=== PATIENT | female | born 1990 | race Caucasian/White ===

== ENCOUNTER 2016-12-27 12:09 | Emergency (ER) | payer MEDICAID ==
[~2016-12-27] VITALS: Ht 154.9 cm; Wt 50.0 kg
[2016-12-27 12:11] VITALS: BP 107/68; PULSE 98; RESP 20; TEMP 97.9; O2SAT 100
[2016-12-27] MEDS ORDERED: SODIUM CHLORIDE 0.9% FLUSH 10 ML FLUSH IVF PRN (12:45)
[2016-12-27] MEDS ORDERED: ONDANSETRON HCL 4 MG/2 ML VIAL IVP ONE (12:45)
[2016-12-27] MEDS ORDERED: SODIUM CHLOR 0.9% 1000 ML INJ 1,000 ML IV ONE (12:45)
--- NOTE | 2016-12-27 12:49 | PD ---
HPI Chief Complaint: Complaint Time Seen by Provider: 12:40 Travel History International Travel<30 days: No Contact w/Intl Traveler<30days: No Traveled to known affect area: No History of Present Illness HPI Patient is a 26-year-old female presenting to emergency evaluation of urinary symptoms. Patient states she started with burning a week ago, she took Azo and her symptoms went away until 2-3 days ago. She states then she started having burning, frequency, left lower back and flank pain. She also reports nausea and vomiting, feeling dizzy, chills and subjective fevers. She denies any vaginal bleeding or discharge. Patient reports her pain as aching and a 5 out of 10, there are no alleviating or exacerbating factors. PFSH Past Medical History ADHD: No Anemia: Yes Arthritis: No Asthma: No Bipolar Disorder: Yes Anxiety: Yes Depression: Yes Cancer: No High Cholesterol: No Chest Pain: No Congestive Heart Failure: No COPD: No Cerebrovascular Accident: No Diabetes: No Diminished Hearing: No Endocrine: No Gastrointestinal Disorders: No GERD: No Genitourinary: No Headaches: Yes Hepatitis: No Hiatal Hernia: No Hypertension: No Immune Disorder: No Implanted Vascular Access Dvce: No Kidney Stones: No Musculoskeletal: No Neurologic: No Psychiatric: Yes (PTSD) Respiratory: No Immunizations Current: No Migraines: Yes Myocardial Infarction: No Renal Failure: No Seizures: Yes (patient has had one seizure) Sleep Apnea: No Thyroid Disease: No Ulcer: Yes (GASTRIC ULCERS) Tetanus Vaccination: < 5 Years ?: Not LMP: DECEMBER 2016 Menopausal: No : 4 Para: 1 Miscarriage: 3 : 0 Ovarian Cysts: Yes Dilation and Curettage (D&C): Yes (july 2014) Past Surgical History Abdominal Surgery: No Appendectomy: No Cardiac Surgery: No Cholecystectomy: No Ear Surgery: No Endocrine Surgery: No Eye Surgery: No Genitourinary Surgery: No Gynecologic Surgery: Yes (D&C) Neurologic Surgery: No Oral Surgery: No Thoracic Surgery: No Social History Alcohol Use: No Tobacco Use: Yes Substance Use: No Allergies-Medications (Allergen,Severity, Reaction): Coded Allergies: Albuterol (Verified Allergy, Severe, Nausea/Vomiting, 12/27/16) Doxycycline (Verified Allergy, Severe, N/V/D, 12/27/16) Naproxen (Verified Allergy, Severe, ITCHY/VOMITING/RASH, 12/27/16) Ibuprofen (Verified Allergy, Unknown, Itchy, nausea, vomiting, diarrhea, ) Reported Meds & Prescriptions Reported Meds & Active Scripts Active No Active Prescriptions or Reported Medications Review of Systems Except as stated in HPI: all other systems reviewed are Neg General / Constitutional: Positive: Fever (subjective), Chills Respiratory: No: Shortness of Breath Gastrointestinal: Positive: Nausea, Vomiting Genitourinary: Positive: Urgency, Frequency, Dysuria, Pelvic Pain, Flank Pain, No: Discharge, Vaginal Bleeding Musculoskeletal: No: Myalgias Physical Exam Narrative GENERAL: Well-developed, well-nourished, alert female. Resting comfortably in no acute distress. SKIN: Warm and dry. HEAD: Atraumatic. Normocephalic. EYES: Pupils equal and round. No scleral icterus. No injection or drainage. ENT: No nasal bleeding or discharge. Mucous membranes pink and moist. NECK: Trachea midline. No JVD. CARDIOVASCULAR: Regular rate and rhythm. RESPIRATORY: No accessory muscle use. Clear to auscultation. Breath sounds equal bilaterally. GASTROINTESTINAL: Abdomen soft, mildly tender to palpation in suprapubic region , nondistended. Hepatic and splenic margins not palpable. Positive CVAT on the left MUSCULOSKELETAL: Extremities without clubbing, cyanosis, or edema. No obvious deformities. NEUROLOGICAL: Awake and alert. No obvious cranial nerve deficits. Motor grossly within normal limits. Five out of 5 muscle strength in the arms and legs. Normal speech. PSYCHIATRIC: Appropriate mood and affect; insight and judgment normal. Data Data Last Documented VS Vital Signs Date Time Temp Pulse Resp B/P Pulse Ox O2 Delivery O2 Flow Rate FiO2 12/27/16 12:11 97.9 98 20 107/68 100 Orders Urinalysis - C+S If Indicated (12/27/16 12:30) Iv Access Insert/Monitor (12/27/16 12:37) Sodium Chloride 0.9% Flush (Ns Flush) (12/27/16 12:45) Ondansetron Inj (Zofran Inj) (12/27/16 12:45) Sodium Chlor 0.9% 1000 Ml Inj (Ns 1000 M (12/27/16 12:45) Complete Blood Count With Diff (12/27/16 12:37) Basic Metabolic Panel (Bmp) (12/27/16 12:37) Urine Culture (12/27/16 12:45) Ciprofloxacin (Cipro) (12/27/16 14:00) Labs Laboratory Tests Test 12/27/16 12:45 White Blood Count 13.9 TH/MM3 Red Blood Count 4.94 MIL/MM3 Hemoglobin 15.4 GM/DL Hematocrit 45.0 % Mean Corpuscular Volume 91.0 FL Mean Corpuscular Hemoglobin 31.3 PG Mean Corpuscular Hemoglobin 34.3 % Concent Red Cell Distribution Width 14.8 % Platelet Count 356 TH/MM3 Mean Platelet Volume 9.1 FL Neutrophils (%) (Auto) 74.8 % Lymphocytes (%) (Auto) 18.8 % Monocytes (%) (Auto) 5.8 % Eosinophils (%) (Auto) 0.4 % Basophils (%) (Auto) 0.2 % Neutrophils # (Auto) 10.3 TH/MM3 Lymphocytes # (Auto) 2.6 TH/MM3 Monocytes # (Auto) 0.8 TH/MM3 Eosinophils # (Auto) 0.1 TH/MM3 Basophils # (Auto) 0.0 TH/MM3 CBC Comment DIFF FINAL Differential Comment Urine Color DARK-YELLOW Urine Turbidity HAZY Urine pH 8.5 Urine Specific [facility] 1.020 Urine Protein 100 mg/dL Urine Glucose (UA) NEG mg/dL Urine Ketones NEG mg/dL Urine Occult Blood TRACE Urine Nitrite NEG Urine Bilirubin NEG Urine Urobilinogen LESS THAN 2.0 MG/DL Urine Leukocyte Esterase LARGE Urine RBC 18 /hpf Urine WBC 161 /hpf Urine Squamous Epithelial 1 /hpf Cells Urine Bacteria OCC /hpf Urine Mucus FEW /lpf Microscopic Urinalysis Comment CULTURE INDICATED Sodium Level 136 MEQ/L Potassium Level 3.6 MEQ/L Chloride Level 104 MEQ/L Carbon Dioxide Level 25.8 MEQ/L Anion Gap 6 MEQ/L Blood Urea Nitrogen 10 MG/DL Creatinine 0.62 MG/DL Estimat Glomerular Filtration 117 ML/MIN Rate Random Glucose 82 MG/DL Calcium Level 9.1 MG/DL [facility] Medical Decision Making Medical Screen Exam Complete: Yes Emergency Medical Condition: Yes Interpretation(s) Laboratory Tests Test 12/27/16 12:45 White Blood Count 13.9 TH/MM3 Red Blood Count 4.94 MIL/MM3 Hemoglobin 15.4 GM/DL Hematocrit 45.0 % Mean Corpuscular Volume 91.0 FL Mean Corpuscular Hemoglobin 31.3 PG Mean Corpuscular Hemoglobin 34.3 % Concent Red Cell Distribution Width 14.8 % Platelet Count 356 TH/MM3 Mean Platelet Volume 9.1 FL Neutrophils (%) (Auto) 74.8 % Lymphocytes (%) (Auto) 18.8 % Monocytes (%) (Auto) 5.8 % Eosinophils (%) (Auto) 0.4 % Basophils (%) (Auto) 0.2 % Neutrophils # (Auto) 10.3 TH/MM3 Lymphocytes # (Auto) 2.6 TH/MM3 Monocytes # (Auto) 0.8 TH/MM3 Eosinophils # (Auto) 0.1 TH/MM3 Basophils # (Auto) 0.0 TH/MM3 CBC Comment DIFF FINAL Differential Comment Urine Color DARK-YELLOW Urine Turbidity HAZY Urine pH 8.5 Urine Specific [facility] 1.020 Urine Protein 100 mg/dL Urine Glucose (UA) NEG mg/dL Urine Ketones NEG mg/dL Urine Occult Blood TRACE Urine Nitrite NEG Urine Bilirubin NEG Urine Urobilinogen LESS THAN 2.0 MG/DL Urine Leukocyte Esterase LARGE Urine RBC 18 /hpf Urine WBC 161 /hpf Urine Squamous Epithelial 1 /hpf Cells Urine Bacteria OCC /hpf Urine Mucus FEW /lpf Microscopic Urinalysis Comment CULTURE INDICATED Sodium Level 136 MEQ/L Potassium Level 3.6 MEQ/L Chloride Level 104 MEQ/L Carbon Dioxide Level 25.8 MEQ/L Anion Gap 6 MEQ/L Blood Urea Nitrogen 10 MG/DL Creatinine 0.62 MG/DL Estimat Glomerular Filtration 117 ML/MIN Rate Random Glucose 82 MG/DL Calcium Level 9.1 MG/DL Vital Signs Date Time Temp Pulse Resp B/P Pulse Ox O2 Delivery O2 Flow Rate FiO2 12/27/16 12:11 97.9 98 20 107/68 100 Differential Diagnosis Pyelonephritis versus urinary tract infection versus kidney stone versus other Narrative Course Patient is a 26-year-old female presenting to emergency department for evaluation of 1 week of urinary symptoms. Patient's vital signs are stable, labs ordered and pending. CBC with a white count of 13.9 Chemistry is unremarkable Urinalysis with CBC 161, RBC 18, large leukocyte esterase, trace occult blood, reflex culture pending. Patient given 1 dose of ciprofloxacin orally in the emergency department. She was also given 1 L of IV fluids as well as Zofran for nausea. Patient will be discharged home. She is encouraged to maintain adequate fluid intake, she was advised to return to emergency department for any new or worsening symptoms. She was encouraged to follow-up with her primary doctor. Patient verbalized understanding of instructions. Patient stable for discharge. Diagnosis Primary Impression: Urinary tract infection Qualified Code: N39.0 - Urinary tract infection with hematuria, site unspecified Referrals: Primary Care Physician Patient Instructions: General Instructions, Urinary Tract Infection in Women ( ED) Additional Instructions: Complete full course of antibiotics as prescribed Return to emergency department for any new or worsening symptoms Increase fluid intake Follow-up with your primary doctor Med/Other Pt SpecificInfo: Prescription(s) given Scripts Ondansetron Odt (Zofran Odt)4 Mg Tab4 Mg SL Q6HR PRN (Nausea/Vomiting) #30 TAB Ref 0 Prov:Quita Andrade 12/27/16 Ciprofloxacin (Cipro)500 Mg [id number] Mg PO BID 7 Days Ref 0 Prov:Quita Andrade 12/27/16 Disposition: 01 DISCHARGE HOME Condition: Stable Quita Andrade Dec 27, 2016 12:49
[2016-12-27 13:38] LABS: AUTOMATED NEUTROPHIL # 10.3 TH/MM3 (1.8-7.7); BASOPHIL % 0.2 % (0.0-2.0); EOSINOPHIL # 0.1 TH/MM3 (0-0.4); EOSINOPHIL % 0.4 % (0.0-4.0); HEMO FLAGS DIFF FINAL; LYMPH % 18.8 % (9.0-44.0); LYMPHOCYTE # 2.6 TH/MM3 (1.0-4.8); MEAN CORPUSCULAR HEMOGLOBIN 31.3 PG (27.0-34.0); MEAN CORPUSCULAR HGB CONC 34.3 % (32.0-36.0); MONO % 5.8 % (0.0-8.0); NEUT % 74.8 % (16.0-70.0); PLATELET COUNT 356 TH/MM3 (150-450); RED BLOOD COUNT 4.94 MIL/MM3 (4.00-5.30); RED CELL DISTRIBUTION WIDTH 14.8 % (11.6-17.2); WHITE BLOOD COUNT 13.9 TH/MM3 (4.0-11.0)
[2016-12-27 13:45] LABS: BACTERIA, URINE OCC /hpf; BLOOD, URINE TRACE (NEG); COMMENT (UR) CULTURE INDICATED; CULTURE IF INDICATED CULTURE INDICATED; GLUCOSE,URINE NEG (NEG); KETONE, URINE NEG (NEG); MUCUS URINE FEW /lpf (OCC); NITRITE,URINE NEG (NEG); PH, URINE 8.5 (5.0-8.5); SQUAMOUS EPITHELIAL CELL URINE 1 /hpf (0-5); URINE COLOR DARK-YELLOW (YELLW/STRAW)
[2016-12-27] MEDS ORDERED: CIPROFLOXACIN 500 MG TAB PO ONE (14:00)
[2016-12-27 14:04] LABS: BICARBONATE 25.8 MEQ/L (21.0-32.0); POTASSIUM 3.6 MEQ/L (3.5-5.1)
[2016-12-27] MEDS ORDERED: CIPR-9 PO (14:21)
[2016-12-27] MEDS ORDERED: ZOFR4TAB3 SL (14:21)
[2016-12-27 14:28] VITALS: BP 118/68
== END 2016-12-27 14:29 | disposition home or self-care (01) ==
LOC: NEPD 12:09
DX: N39.0 Urinary tract infection, site not specified (principal); B96.20 Unspecified Escherichia coli [E. coli] as the cause of diseases classified elsewhere; R31.9 Hematuria, unspecified
CPT/HCPCS: 80048; 81001; 85025; 87077; 87086; 87186; 96374; 99284; J2405; J7030

== ENCOUNTER 2017-01-27 11:57 | Emergency (ER) | payer MEDICAID ==
[~2017-01-27] VITALS: Ht 154.9 cm; Wt 47.5 kg
[~2017-01-27 11:57] MED LIST: CIPR-9 PO; ZOFR4TAB3 SL
[2017-01-27 11:59] VITALS: BP 111/77; PULSE 103; RESP 20; TEMP 97.7; O2SAT 96
--- NOTE | 2017-01-27 12:08 | PD ---
Physical Exam Time Seen by Provider: 12:05 Narrative 26yo F c/o R sided abdominal pain, vomiting, and diarrhea since this morning. Pain 9/10. +hx kidney infection. Denies dysuria. Denies hx kidney stones. Denies hx appendectomy. Afebrile in triage. Patient seen in triage. VS reviewed. Awaiting bed placement. Data Data Last Documented VS Vital Signs Date Time Temp Pulse Resp B/P Pulse Ox O2 Delivery O2 Flow Rate FiO2 01/27/17 11:59 97.7 103 20 111/77 96 Room Air MDM Supervised Visit with KAZ: Farrah Osborne Jan 27, 2017 12:08
[2017-01-27] MEDS ORDERED: ONDANSETRON HCL 4 MG/2 ML VIAL IVP ONE (13:00)
[2017-01-27] MEDS ORDERED: SODIUM CHLORIDE 0.9% FLUSH 10 ML FLUSH IV FLUSH PRN (13:00)
[2017-01-27] MEDS ORDERED: MORPHINE SULFATE 4 MG/ML INJ IV PUSH ONE (13:00)
--- NOTE | 2017-01-27 13:10 | PD ---
HPI Chief Complaint: Abdominal Pain Time Seen by Provider: 12:43 Travel History International Travel<30 days: No Contact w/Intl Traveler<30days: No Traveled to known affect area: No History of Present Illness HPI The patient was seen and examined in the presence of the nurse. This patient complains of abdominal pain. Location is right lower quadrant. Duration is 5 hours. Symptoms are moderate to severe in nature. She has nausea and vomiting as well denies vaginal discharge or vaginal bleeding or fever. She does not think she is . No alleviating factors. No history of abdominal surgeries PFSH Past Medical History ADHD: No Anemia: Yes Arthritis: No Asthma: No Bipolar Disorder: Yes Anxiety: Yes Depression: Yes Cancer: No High Cholesterol: No Chest Pain: No Congestive Heart Failure: No COPD: No Cerebrovascular Accident: No Diabetes: No Diminished Hearing: No Endocrine: No Gastrointestinal Disorders: No GERD: No Genitourinary: No Headaches: Yes Hepatitis: No Hiatal Hernia: No Hypertension: No Immune Disorder: No Implanted Vascular Access Dvce: No Kidney Stones: No Musculoskeletal: No Neurologic: No Psychiatric: Yes (PTSD) Respiratory: No Immunizations Current: No Migraines: Yes Myocardial Infarction: No Renal Failure: No Seizures: Yes (patient has had one seizure) Sleep Apnea: No Thyroid Disease: No Ulcer: Yes (GASTRIC ULCERS) ?: Not LMP: 1 week ago Menopausal: No : 4 Para: 1 Miscarriage: 3 : 0 Ovarian Cysts: Yes Dilation and Curettage (D&C): Yes (july 2014) Past Surgical History Abdominal Surgery: No Appendectomy: No Cardiac Surgery: No Cholecystectomy: No Ear Surgery: No Endocrine Surgery: No Eye Surgery: No Genitourinary Surgery: No Gynecologic Surgery: Yes (D&C) Neurologic Surgery: No Oral Surgery: No Thoracic Surgery: No Social History Alcohol Use: No Tobacco Use: Yes Substance Use: No Allergies-Medications (Allergen,Severity, Reaction): Coded Allergies: Albuterol (Verified Allergy, Severe, Nausea/Vomiting, 12/27/16) Doxycycline (Verified Allergy, Severe, N/V/D, 12/27/16) Naproxen (Verified Allergy, Severe, ITCHY/VOMITING/RASH, 12/27/16) Ibuprofen (Verified Allergy, Unknown, Itchy, nausea, vomiting, diarrhea, ) Reported Meds & Prescriptions Reported Meds & Active Scripts Active Zofran Odt (Ondansetron Odt) 4 Mg Tab 4 Mg SL Q6HR PRN Cipro (Ciprofloxacin HCl) 500 Mg Tab 500 Mg PO BID 7 Days Review of Systems General / Constitutional: No: Fever Eyes: No: Visual changes HENT: No: Headaches Cardiovascular: No: Chest Pain or Discomfort Respiratory: No: Shortness of Breath Gastrointestinal: Positive: Nausea, Vomiting, Abdominal Pain Genitourinary: Positive: Pelvic Pain, No: Dysuria Musculoskeletal: No: Pain Skin: No Rash Neurologic: No: Weakness Psychiatric: No: Depression Endocrine: No: Polydipsia Hematologic/Lymphatic: No: Easy Bruising Physical Exam Narrative GENERAL: Well-nourished, well-developed patient with right lower quadrant pain. SKIN: Focused skin assessment reveals no rash and nodules. Skin is Warm and dry. HEAD: Atraumatic. Normocephalic. EYES: Pupils equal and round. No scleral icterus. No injection or drainage. ENT: No nasal bleeding or discharge. Mucous membranes pink and moist. NECK: Trachea midline. No JVD. CARDIOVASCULAR: Regular rate and rhythm. No murmur appreciated. RESPIRATORY: No accessory muscle use. Clear to auscultation. Breath sounds equal bilaterally. GASTROINTESTINAL: Abdomen soft, right lower quadrant is tender without rebound or guarding, nondistended. Hepatic and splenic margins not palpable. MUSCULOSKELETAL: No obvious deformities. No clubbing. No cyanosis. No edema. NEUROLOGICAL: Awake and alert. No obvious cranial nerve deficits. Motor grossly within normal limits. Normal speech. PSYCHIATRIC: Appropriate mood and affect; insight and judgment normal. Pelvic: Speculum exam reveals no blood or discharge in the vault. No cervical motion tenderness. No adnexal mass Data Data Last Documented VS Vital Signs Date Time Temp Pulse Resp B/P Pulse Ox O2 Delivery O2 Flow Rate FiO2 01/27/17 13:20 18 01/27/17 11:59 97.7 103 111/77 96 Room Air Orders Basic Metabolic Panel (Bmp) (01/27/17 12:59) Complete Blood Count With Diff (01/27/17 12:59) Prothrombin Time / Inr (Pt) (01/27/17 12:59) Act Partial Throm Time (Ptt) (01/27/17 12:59) Urinalysis - C+S If Indicated (01/27/17 12:59) Ct Abd/Pel W Iv Contrast(Rout) (01/27/17 12:59) Iv Access Insert/Monitor (01/27/17 12:59) Morphine Inj (Morphine Inj) (01/27/17 13:00) Ondansetron Inj (Zofran Inj) (01/27/17 13:00) Sodium Chloride 0.9% Flush (Ns Flush) (01/27/17 13:00) Ed Urine Pregnancytest Poc (01/27/17 12:59) Diatrizoate Liq ( Gastroview Liq) (01/27/17 13:18) Oral Contrast - Adult (01/27/17 13:21) Urine Culture (01/27/17 13:08) Iohexol 350 Inj (Omnipaque 350 Inj) (01/27/17 15:32) Labs Laboratory Tests Test 01/27/17 13:08 White Blood Count 12.4 TH/MM3 Red Blood Count 4.78 MIL/MM3 Hemoglobin 15.1 GM/DL Hematocrit 43.8 % Mean Corpuscular Volume 91.6 FL Mean Corpuscular Hemoglobin 31.5 PG Mean Corpuscular Hemoglobin 34.4 % Concent Red Cell Distribution Width 14.2 % Platelet Count 314 TH/MM3 Mean Platelet Volume 8.8 FL Neutrophils (%) (Auto) 66.4 % Lymphocytes (%) (Auto) 24.1 % Monocytes (%) (Auto) 7.7 % Eosinophils (%) (Auto) 1.1 % Basophils (%) (Auto) 0.7 % Neutrophils # (Auto) 8.3 TH/MM3 Lymphocytes # (Auto) 3.0 TH/MM3 Monocytes # (Auto) 1.0 TH/MM3 Eosinophils # (Auto) 0.1 TH/MM3 Basophils # (Auto) 0.1 TH/MM3 CBC Comment DIFF FINAL Differential Comment Prothrombin Time 11.4 SEC Prothromb Time International 1.0 RATIO Ratio Activated Partial 26.9 SEC Thromboplast Time Urine Color DARK-BROWN Urine Turbidity CLEAR Urine pH 6.5 Urine Specific [place] 1.018 Urine Protein 30 mg/dL Urine Glucose (UA) NEG mg/dL Urine Ketones NEG mg/dL Urine Occult Blood NEG Urine Nitrite POS Urine Bilirubin NEG Urine Urobilinogen 8.0 MG/DL Urine Leukocyte Esterase NEG Urine WBC 2 /hpf Urine Squamous Epithelial 1 /hpf Cells Urine Bacteria FEW /hpf Urine Mucus FEW /lpf Microscopic Urinalysis Comment CULTURE INDICATED Sodium Level 139 MEQ/L Potassium Level 3.5 MEQ/L Chloride Level 107 MEQ/L Carbon Dioxide Level 22.0 MEQ/L Anion Gap 10 MEQ/L Blood Urea Nitrogen 7 MG/DL Creatinine 0.76 MG/DL Estimat Glomerular Filtration 93 ML/MIN Rate Random Glucose 88 MG/DL Calcium Level 8.8 MG/DL MDM Medical Decision Making Medical Screen Exam Complete: Yes Emergency Medical Condition: Yes Medical Record Reviewed: Yes Differential Diagnosis Appendicitis, colitis, PID, ectopic Narrative Course I have reviewed the patient's electronic medical record. Patient's been here before for childbirth and was [place] acted years ago IV placed CBC is normal Metabolic profile is normal Urinalysis is clean but will be cultured due to nitrate. Certainly not the cause of her symptoms Urine is negative Coagulation studies are normal CT of abdomen and pelvis with oral and IV contrast done to evaluate for appendicitis. CT scan is negative for any emergent process. Appendix is normal Etiology of her right lower quadrant pain is unclear but I cannot find any evidence of emergent condition. Reviewed it with her in detail and answered her questions I offered her medication but she does not want any prescriptions Diagnosis Primary Impression: Right lower quadrant abdominal pain of unknown etiology Additional Instructions: The patient was advised to follow up with their physician and return if they worsen. Med/Other Pt SpecificInfo: Other Disposition: 01 DISCHARGE HOME Condition: Stable Michael Narayanan MD Jan 27, 2017 13:10
[2017-01-27] MEDS ORDERED: DIATRIZOATE MEGLUM/DIATRIZOATE SOD 9 ML CUP ONE (13:18)
[2017-01-27 13:36] LABS: AUTOMATED NEUTROPHIL # 8.3 TH/MM3 (1.8-7.7); BASOPHIL # 0.1 TH/MM3 (0-0.2); BASOPHIL % 0.7 % (0.0-2.0); EOSINOPHIL # 0.1 TH/MM3 (0-0.4); EOSINOPHIL % 1.1 % (0.0-4.0); HEMATOCRIT 43.8 % (35.0-46.0); HEMO FLAGS DIFF FINAL; LYMPH % 24.1 % (9.0-44.0); MEAN CELL VOLUME 91.6 FL (80.0-100.0); MEAN CORPUSCULAR HEMOGLOBIN 31.5 PG (27.0-34.0); MEAN CORPUSCULAR HGB CONC 34.4 % (32.0-36.0); MONO % 7.7 % (0.0-8.0); NEUT % 66.4 % (16.0-70.0); PLATELET COUNT 314 TH/MM3 (150-450); RED BLOOD COUNT 4.78 MIL/MM3 (4.00-5.30); RED CELL DISTRIBUTION WIDTH 14.2 % (11.6-17.2); WHITE BLOOD COUNT 12.4 TH/MM3 (4.0-11.0)
[2017-01-27 13:45] LABS: APTT (PATIENT) 26.9 SEC (24.3-30.1); PROTHROMBIN TIME - PATIENT 11.4 SEC (9.8-11.6)
[2017-01-27 13:53] LABS: POTASSIUM 3.5 MEQ/L (3.5-5.1)
[2017-01-27 13:55] LABS: BACTERIA, URINE FEW /hpf; BLOOD, URINE NEG (NEG); COMMENT (UR) CULTURE INDICATED; CULTURE IF INDICATED CULTURE INDICATED; GLUCOSE,URINE NEG (NEG); KETONE, URINE NEG (NEG); MUCUS URINE FEW /lpf (OCC); PH, URINE 6.5 (5.0-8.5); SQUAMOUS EPITHELIAL CELL URINE 1 /hpf (0-5)
[2017-01-27 13:59] LABS: NITRITE,URINE POS (NEG); URINE COLOR DARK-BROWN (YELLW/STRAW)
[2017-01-27] MEDS ORDERED: IOHEXOL 350 MG/ML 10 ML VIAL (for RAD DIAG) IV ONE (15:32)
--- NOTE | 2017-01-27 15:48 | RADRPT ---
EXAM DATE/TIME: 01/27/2017 15:21 [place] COMPARISON: CT ABDOMEN & PELVIS W CONTRAST, December 19, 2011, 20:03. INDICATIONS : Patient complains of abdominal pain and vomiting. IV CONTRAST: 100 cc Omnipaque 350 (iohexol) IV ORAL CONTRAST: Partial prescribed oral contrast ingested. RADIATION DOSE: 4.49 CTDIvol (mGy) MEDICAL HISTORY : Ulcers. SURGICAL HISTORY : Tubal ligation. ENCOUNTER: Initial ACUITY: 1 day PAIN SCALE: 6/10 LOCATION: Right lower quadrant TECHNIQUE: Volumetric scanning of the abdomen and pelvis was performed. Using automated exposure control and ad justment of the mA and/or kV according to patient size, radiation dose was kept as low as reasonably achievable to obtain optimal diagnostic quality images. DICOM format image data is available electro nically for review and comparison. FINDINGS: LOWER LUNGS: The visualized lower lungs are clear. LIVER: Homogeneous density without lesion. There is no dilation of the biliary tree. No calcified gallston es. SPLEEN: Normal size without lesion. PANCREAS: Within normal limits. KIDNEYS: Normal in size and shape. There is no mass, stone or hydronephrosis. ADRENAL GLANDS: Within normal limits. VASCULAR: There is no aortic aneurysm. BOWEL/MESENTERY: The stomach, small bowel, and colon demonstrate no acute abnormality. There is no free intraperitone al air or fluid. ABDOMINAL WALL: Within normal limits. RETROPERITONEUM: There is no lymphadenopathy. BLADDER: No wall thickening or mass. REPRODUCTIVE: Within normal limits. INGUINAL: There is no lymphadenopathy or hernia. MUSCULOSKELETAL: Within normal limits for patient age. There is no evidence for bowel obstruction. There is no free fluid or free air. There is very minim al torsion in the mesentery in the left upper quadrant nodules see evidence for malrotation. CONCLUSION: Negative, I do not see an etiology for the normal pain. Cecum and appendix appear no rmal. There is no fluid or adnexal mass. Sajan Ernst MD FACR on January 27, 2017 at 15:41 Board Certified Radiologist. This report was verified electronically.
[2017-01-27 17:00] VITALS: BP 108/72; PULSE 95; RESP 20; TEMP 97.7; O2SAT 98
== END 2017-01-27 17:08 | disposition home or self-care (01) ==
LOC: NEPD 11:57
DX: R10.31 Right lower quadrant pain (principal); R11.2 Nausea with vomiting, unspecified; Z72.0 Tobacco use; Z86.2 Personal history of diseases of the blood and blood-forming organs and certain disorders involving the immune mechanism; Z86.59 Personal history of other mental and behavioral disorders; Z86.69 Personal history of other diseases of the nervous system and sense organs
CPT/HCPCS: 74177; 80048; 81001; 84703; 85025; 85610; 85730; 87086; 96374; 96375; 99285; J2270; J2405; Q9963; Q9967

== ENCOUNTER 2017-04-23 11:07 | Emergency (ER) | payer MEDICAID ==
[~2017-04-23] VITALS: Ht 154.9 cm; Wt 55.0 kg
[2017-04-23 11:39] VITALS: BP 124/73; PULSE 101; RESP 16; TEMP 98.1; O2SAT 99
--- NOTE | 2017-04-23 12:13 | PD ---
HPI Chief Complaint: Foreign Body Time Seen by Provider: 11:22 Travel History International Travel<30 days: No Contact w/Intl Traveler<30days: No Traveled to known affect area: No History of Present Illness HPI Patient is a 26-year-old female who presents to emergency room with foreign body ingestion. Patient reports that she accidently swallowed a long bar tongue ring 1.5 hours prior to arrival to the ER. Reports that she feels as if the tongue ring is stuck in her throat. Patient reports that she tried to vomit up this tongue ring without any success, PFSH Past Medical History ADHD: No Anemia: Yes Arthritis: No Asthma: No Bipolar Disorder: Yes Anxiety: Yes Depression: Yes Heart Rhythm Problems: Yes (PALPITATIONS) Cancer: No Cardiovascular Problems: Yes (PALPITATIONS) High Cholesterol: No Chest Pain: No Congestive Heart Failure: No COPD: No Cerebrovascular Accident: No Diabetes: No Diminished Hearing: No Endocrine: No Gastrointestinal Disorders: No GERD: No Genitourinary: No Headaches: Yes Hepatitis: No Hiatal Hernia: No Hypertension: No Immune Disorder: No Implanted Vascular Access Dvce: No Kidney Stones: No Musculoskeletal: No Neurologic: No Psychiatric: Yes (PTSD) Reproductive: Yes (ENDOMETRIOSIS) Respiratory: No Immunizations Current: No Migraines: Yes Myocardial Infarction: No Renal Failure: No Seizures: Yes (patient has had one seizure) Sleep Apnea: No Thyroid Disease: No Ulcer: Yes (GASTRIC ULCERS) ?: Unknown Menopausal: No : 4 Para: 2 Miscarriage: 2 : 0 Ovarian Cysts: Yes Dilation and Curettage (D&C): Yes (july 2014) Tubal Ligation: Yes Past Surgical History Abdominal Surgery: No Appendectomy: No Cardiac Surgery: No Cholecystectomy: No Ear Surgery: No Endocrine Surgery: No Eye Surgery: No Genitourinary Surgery: No Gynecologic Surgery: Yes (D&C) Neurologic Surgery: No Oral Surgery: No Thoracic Surgery: No Social History Alcohol Use: Yes ("ONCE A MONTH") Tobacco Use: Yes (1/2PPD ) Substance Use: Yes (MARIJUANA) Allergies-Medications (Allergen,Severity, Reaction): Coded Allergies: albuterol (Unverified Allergy, Severe, Nausea/Vomiting, 04/23/17) doxycycline (Unverified Allergy, Severe, N/V/D, 04/23/17) naproxen (Unverified Allergy, Severe, ITCHY/VOMITING/RASH, 04/23/17) ibuprofen (Unverified Allergy, Unknown, Itchy, nausea, vomiting, diarrhea , 04/23/17) Reported Meds & Prescriptions Reported Meds & Active Scripts Active No Active Prescriptions or Reported Medications Review of Systems General / Constitutional: No: Fever Eyes: No: Foreign Body Sensation, Visual changes HENT: Positive: Other (FB sensation in throat), No: Headaches Cardiovascular: No: Chest Pain or Discomfort Respiratory: No: Shortness of Breath Gastrointestinal: No: Abdominal Pain Genitourinary: No: Dysuria Musculoskeletal: No: Pain Skin: No Rash Neurologic: No: Weakness Psychiatric: No: Depression Endocrine: No: Polydipsia Hematologic/Lymphatic: No: Easy Bruising Physical Exam Narrative GENERAL: mild distress SKIN: Focused skin assessment warm/dry. HEAD: Atraumatic. Normocephalic. EYES: Pupils equal and round. No scleral icterus. No injection or drainage. ENT: No nasal bleeding or discharge. Mucous membranes pink and moist. Patient with no obvious foreign bodies in the back of throat, patient is maintaining her own airway, talking in full sentences, not drooling, no trismus on exam NECK: Trachea midline. No JVD. CARDIOVASCULAR: Regular rate and rhythm. No murmur appreciated. RESPIRATORY: No accessory muscle use. Clear to auscultation. Breath sounds equal bilaterally. GASTROINTESTINAL: Abdomen soft, non-tender, nondistended. Hepatic and splenic margins not palpable. MUSCULOSKELETAL: No obvious deformities. No clubbing. No cyanosis. No edema. NEUROLOGICAL: Awake and alert. No obvious cranial nerve deficits. Motor grossly within normal limits. Normal speech. PSYCHIATRIC: Appropriate mood and affect; insight and judgment normal. Data Data Last Documented VS Vital Signs Date Time Temp Pulse Resp B/P (MAP) Pulse Ox O2 Delivery O2 Flow Rate FiO2 04/23/17 11:39 98.1 101 16 124/73 (90) 99 Orders Orders Soft Tissue Neck (04/23/17 ) Abdomen, Kub Only (04/23/17 ) Chest, Pa & Lat (04/23/17 11:20) Pantoprazole Inj (Protonix Inj) (04/23/17 12:45) Iv Access Insert/Monitor (04/23/17 12:33) Consult Gastroenterology (04/23/17 ) MDM Medical Decision Making Medical Screen Exam Complete: Yes Emergency Medical Condition: Yes Medical Record Reviewed: Yes Interpretation(s) Vital Signs Date Time Temp Pulse Resp B/P (MAP) Pulse Ox O2 Delivery O2 Flow Rate FiO2 04/23/17 11:39 98.1 101 16 124/73 (90) 99 Differential Diagnosis Foreign body in esophagus versus stomach Narrative Course During the course of the patients emergency department visit, the patients history, examination, and differential diagnosis were reviewed with the patient. The patient was placed on a consumer analyst with oximetry and frequent blood pressure monitoring. The patient had a 20-gauge IV access obtained and blood work sent for analysis. Radiology studies were reviewed and remarkable for Last Impressions Chest X-Ray 04/23/17 1120 Signed Impressions: Service Date/Time: Sunday, April 23, 2017 11:54 - CONCLUSION: Probable left renal stone. Sajan Ernst MD FACR Soft Tissue Neck X-Ray 04/23/17 0000 Signed Impressions: Service Date/Time: Sunday, April 23, 2017 11:52 - CONCLUSION: Negative for radiopaque foreign body Sajan Ernst MD FACR Abdomen X-Ray 04/23/17 0000 Signed Impressions: Service Date/Time: Sunday, April 23, 2017 11:56 - CONCLUSION: Radiopaque foreign body as above. Sajan Ernst MD FACR X-ray of the abdomen shows radiopaque foreign body which is 2 cm in size in the fundus of the stomach. Call made to GI Case reviewed with Dr. Villalba, will bring patient to endoscopy suite now to remove FB Patient reports that she did not eat anything today, she did drink some water and mountain dew at 10:30am but vomited it up Diagnosis Primary Impression: Foreign body in stomach, initial encounter Scripts No Active Prescriptions or Reported Meds Drea Rogel DO Apr 23, 2017 12:13
--- NOTE | 2017-04-23 12:20 | RADRPT ---
EXAM DATE/TIME: 04/23/2017 11:52 [facility] COMPARISON: No previous studies available for comparison. INDICATIONS : Swallowed a plastic bead & metal barbell. MEDICAL HISTORY : Ulcers. Endometriosis. Seizures. Palpatations. SURGICAL HISTORY : Tubal ligation. ENCOUNTER: Initial ACUITY: 1 day PAIN SCORE: 7/10 LOCATION: Throat. FINDINGS: Two view examination of the soft tissues of the neck demonstrates the hypopharyngeal airway to have a grossly normal configuration. The trachea is midline. No radiopaque foreign bodies are seen. CONCLUSION: Negative for radiopaque foreign body Sajan Ernst MD FACR on April 23, 2017 at 12:18 Board Certified Radiologist. This report was verified electronically.
--- NOTE | 2017-04-23 12:21 | RADRPT ---
EXAM DATE/TIME: 04/23/2017 11:54 [facility] COMPARISON: CHEST PA & LAT, November 29, 2013, 0:21. INDICATIONS : Swallowed a plastic bead & metal barbell. MEDICAL HISTORY : Ulcers. Palpatations. Seizures. SURGICAL HISTORY : Tubal ligation. ENCOUNTER: Initial ACUITY: 1 day PAIN SCORE: 0/10 LOCATION: chest FINDINGS: PA and lateral views of the chest demonstrate the lungs to be symmetrically aerated without evidence of mass, infiltrate or effusion. The cardiomediastinal contours are unremarkable. Osseous structure s are intact. Small radiopacity overlying the left kidney probably stones. CONCLUSION: Probable left renal stone. Sajan Ernst MD FACR on April 23, 2017 at 12:18 Board Certified Radiologist. This report was verified electronically.
--- NOTE | 2017-04-23 12:22 | RADRPT ---
EXAM DATE/TIME: 04/23/2017 11:56 [facility] COMPARISON: No previous studies available for comparison. INDICATIONS : Swallowed a plastic bead & metal barbell. MEDICAL HISTORY : Ulcers. Palpatations. Seizures. Endometriosis. SURGICAL HISTORY : Tubal ligation. ENCOUNTER: Initial ACUITY: 1 day PAIN SCORE: 0/10 LOCATION: abdomen FINDINGS: Radiopaque foreign body is seen in the fundus of the stomach. This measures 2 cm. This would be con sistent with the bar of the tongue ring. 2 mm left renal stone is noted. CONCLUSION: Radiopaque foreign body as above. Sajan Ernst MD FACR on April 23, 2017 at 12:19 Board Certified Radiologist. This report was verified electronically.
[2017-04-23] MEDS ORDERED: PANTOPRAZOLE SODIUM 40 MG VIAL IV PUSH ONE (12:45)
[2017-04-23] MEDS ORDERED: SODIUM CHLOR 0.9% 1000 ML INJ 1,000 ML IV ONE (13:00)
[2017-04-23] MEDS ORDERED: DO NOT ADM ANY ANTICOAGULANT DRUGS PRN (15:07)
--- NOTE | 2017-04-23 15:09 | MB ---
cc: GILLIAN BUTLER MD DATE OF CONSULTATION: 04/23/2017 TYPE OF CONSULTATION GI consultation. REASON FOR CONSULTATION Foreign body ingestion. HISTORY OF PRESENT ILLNESS A 26-year-old female patient who presented to the emergency room after ingesting a long bar tongue bar at least 2 cm long, at least 1 and 1/2 hour prior to the emergency room arrival. She is feeling of funny sensation and discomfort in her throat and because of that she presented to the emergency room. She denies any swallowing problem, inability to keep her saliva, nausea or vomiting. Denies any change in bowel habits. No abdominal pain. No other associated symptoms. In the emergency room the patient had an abdominal x-ray along with chest and neck x-rays that showed a foreign body to be impacted at the antrum at the end of the stomach several hours after the ingestion. GI was consulted for further evaluation. REVIEW OF SYSTEMS All 14-systems review negative. PAST MEDICAL HISTORY Positive for: 1. Bipolar disorder. 2. Anxiety and depression. 3. History of endometriosis. PAST SURGICAL HISTORY D&C, two previous pregnancies. PSYCHOSOCIAL HISTORY The patient drinks alcohol infrequently. Smokes half-a-pack per day and user of marijuana. Denies drug abuse. ALLERGIES ALBUTEROL, DOXYCYCLINE, NAPROXEN, IBUPROFEN. MEDICATIONS None. FAMILY HISTORY Noncontributory. PHYSICAL EXAMINATION GENERAL: On examination the patient is found to be comfortable, not in distress or in pain, hemodynamically stable. VITAL SIGNS: Within normal limits. HEAD/NECK: Normocephalic, atraumatic. Pupils equal and reactive to light. NECK: Supple neck. No lymphadenopathy. No thyromegaly. CHEST: Clear to auscultation bilaterally. No crackles or wheezes. HEART: Regular rate and rhythm. No murmurs. ABDOMEN: Soft, nontender. No hepatosplenomegaly. No palpable masses. EXTREMITIES: Normal pulses. No edema. SKIN: Skin showing tattoo in the upper extremities and anterior chest wall. No jaundice or pallor. NEURO: Cranial nerves II-XII grossly intact. No focal or sensory deficits. LABORATORY DATA Done in January of 2017 but not on this admission. ASSESSMENT AND PLAN A 26-year-old female patient who ingested accidentally a long bar tongue bar with blunt tip several hours prior to presentation. The bar appeared to be at least 1-1/2 cm long, impacted at the lower esophagus by x-ray, although the patient is asymptomatic now, but in view of prolonged stay in the stomach, would recommend remove it endoscopically. The procedure was explained to the patient including risks, benefits and possible complications and the patient agreed to proceed with endoscopy and removal. Gillian MICHELLE /2:23 PM /3:11 PM MTDD
[2017-04-23] MEDS ORDERED: SODIUM CHLORID 0.9% 500 ML IV PRN (15:45)
[2017-04-23] MEDS ORDERED: CHLORHEXIDINE GLUCONATE 2 % 1 PACK (2 CLOTHS) TOPICAL PRN (15:45)
[2017-04-23] MEDS ORDERED: LACTATED RINGER'S 1000 ML IV PRN (15:45)
[2017-04-23] MEDS ORDERED: METOPROLOL TARTRATE 25 MG TAB PO PRN (15:45)
[2017-04-23] MEDS ORDERED: POVIDONE IODINE 5% (ANTISEPSIS KIT) 4 APPLICATIONS EACH NARE PRN (15:45)
[2017-04-23] MEDS ORDERED: INSULIN HUMAN REGULAR 1,000 UNITS/10 ML VIAL SQ PRN (15:45)
[2017-04-23] MEDS ORDERED: *morphine SULFATE 8 MG/ML PERIprocedure ONLY ONE (15:48)
[2017-04-23 16:30] VITALS: BP 123/68; PULSE 74; RESP 18; TEMP 97.7; O2SAT 99
--- NOTE | 2017-04-23 16:38 | EKG ---
Date Performed: 04/23/2017 Time Performed: 14:30:09 PTAGE: 26 years EKG: Sinus rhythm WITH SINUS ARRHYTHMIA BORDERLINE RIGHT AXIS DEVIATION BORDERLINE ECG Compared to prior electrocardio gram, rate has decreased and Nonspecific ST and T wave abnormalities no longer present. PREVIOUS TRACING : 11/20/2013 21.59 DOCTOR: Colton Ludwig Interpretating Date/Time 04/23/2017 16:37:39
--- NOTE | 2017-04-23 17:03 | RADRPT ---
EXAM DATE/TIME: 04/23/2017 15:42 [facility] COMPARISON: ABDOMEN KUB ONLY, April 23, 2017, 11:56. INDICATIONS : Post op after swallowed a plastic bead & metal barbell. MEDICAL HISTORY : Ulcers. Palpatations. Seizures. Endometriosis. SURGICAL HISTORY : Tubal ligation. ENCOUNTER: Subsequent ACUITY: 1 day PAIN SCORE: Non-responsive. LOCATION: Bilateral lower abdomen. FINDINGS: Apparent interval displacement of approximately 2 cm linear radiopaque foreign body previously projec ting in the region of the gastric fundus now projecting in the pelvis. No additional definite radiopa que foreign bodies are noted. Air is seen throughout the small bowel and colon are without bowel dila tation. Bilateral tubal ligation clips again noted. Remainder of the exam is unchanged. CONCLUSION: 1. Interval displacement of approximately 2 cm linear radiopaque foreign body previously projecting i n the region of the gastric fundus now projecting in the midpelvis region. Gulshan Taylor MD on April 23, 2017 at 16:59 Board Certified Radiologist. This report was verified electronically.
--- NOTE | 2017-04-23 19:36 | PD ---
Physical Exam Date Seen by Provider: Apr 23, 2017 Time Seen by Provider: 19:31 Data Data Last Documented VS Vital Signs Date Time Temp Pulse Resp B/P (MAP) Pulse Ox O2 Delivery O2 Flow Rate FiO2 04/23/17 16:30 97.7 74 18 123/68 (86) 99 Room Air Orders Orders Soft Tissue Neck (04/23/17 ) Abdomen, Kub Only (04/23/17 ) Chest, Pa & Lat (04/23/17 11:20) Pantoprazole Inj (Protonix Inj) (04/23/17 12:45) Iv Access Insert/Monitor (04/23/17 12:33) Consult Gastroenterology (04/23/17 ) Sodium Chlor 0.9% 1000 Ml Inj (Ns 1000 M (04/23/17 13:00) NPO (04/23/17 12:55) Ed Urine Pregnancytest Poc (04/23/17 12:57) (Hub Use Only)Inp Phy Cons/Ref (04/23/17 ) Electrocardiogram (04/23/17 ) Panendo (04/23/17 ) Diet Full Liquid (04/23/17 Dinner) Abdomen, Kub Only (04/23/17 ) Lactated Ringer's 1000 Ml Inj (Lr 1000 M (04/23/17 15:45) Sodium Chlorid 0.9% 500 Ml Inj (Ns 500 M (04/23/17 15:45) Metoprolol Tartrate (Lopressor) (04/23/17 15:45) Povidone Iod 5% Antisepsis Kit (Betadine (04/23/17 15:45) Chlorhexidine 2% Cloth (Chlorhexidine 2% (04/23/17 15:45) Insulin Human Regular Inj (Novolin R Inj (04/23/17 15:45) [facility] (04/23/17 15:07) *Morphine Inj (*Morphine Inj Periprocedu (04/23/17 15:48) Gi Lab Preop/Recover-Statistic (04/23/17 ) [facility] Medical Record Reviewed: Yes Supervised Visit with KAZ: No Differential Diagnosis Foreign body, perforation, abdominal pain Narrative Course 26-year-old female presents to the emergency room for evaluation after swallowing her tongue ring. Initial x-rays were performed which showed tongue ring in the abdomen. She denies any swallowing problems, handling saliva, nausea, or vomiting. My attending physician, Dr. Rogel, saw and evaluated the patient. She consulted GI who recommended endoscopy. She was sent up to endoscopy from the ED. Endoscopy was unsuccessful. New x-rays show movement of the tongue ring. Patient was sent back down to ED for discharge. She is stable without any evidence of perforation. Patient discharged and told to monitor her stool for foreign body. Told to follow up with GI or return for worsening symptoms patient stands and agrees plan. Diagnosis Primary Impression: Foreign body in stomach, initial encounter Referrals: Development Technician Additional Instruction: Take ibuprofen with food as directed, as needed for pain. Monitor stool for foreign body. Follow-up with a shell grader. Return to the emergency room for worsening symptoms such as severe or worsening abdominal pain.. Scripts No Active Prescriptions or Reported Meds Disposition: 01 DISCHARGE HOME Condition: Stable Aye Alves Apr 23, 2017 19:36
--- NOTE | 2017-06-02 08:35 | GIPROC ---
[facility] [address] [facility]. [facility], [address] EGD PROCEDURE REPORT EXAM DATE: 04/23/2017 PATIENT NAME: Smitha Davis MR #: [id number] BIRTHDATE: 1990 ATTENDING: Gillian Figueroa MD ORDER #: [id number] MANAGEMENT DEVELOPER: Noreen Church and Maryjo Matias STATUS: outpatient INDICATIONS: The patient is a 27 yr old female here for an EGD due to Foreign body ingestion. ab PROCEDURE PERFORMED: EGD, diagnostic MEDICATIONS: None and Per Anesthesia. TOPICAL ANESTHETIC: none CONSENT: The patient understands the risks and benefits of the procedure and understands that these risks include, but are not limited to: sedation, allergic reaction, infection, perforation and/or bleeding. Alternative means of evaluation and treatment include, among others: physical exam, x-rays, and/or surgical intervention. The patient elects to proceed with this endoscopic procedure. medical equipment was checked for proper function. Hand hygiene and appropriate measures for infection prevention was taken. After the risks, benefits and alternatives of the procedure were thoroughly explained, Informed consent was verified, confirmed and timeout was successfully executed by the treatment team. The patient was anesthetized with topical anesthesia and the Pentax [id number] endoscope was introduced through the mouth and advanced to the second portion of the duodenum. Retroflexion was performed and was normal The gastroscope was then slowly withdrawn and removed. ESOPHAGUS: The esophagus was otherwise normal. STOMACH: The stomach otherwise appeared normal. DUODENUM: The duodenal mucosa appeared normal in the bulb and second portion of the duodenum. ADVERSE EVENTS: There were no complications. IMPRESSIONS: 1. The esophagus was otherwise normal 2. The stomach otherwise appeared normal 3. Normal duodenal mucosa in the bulb and second portion of the duodenum 4. Retroflexion was performed and was normal RECOMMENDATIONS: No treatment PATIENT CONDITION: stable DISPOSITION: Observation REPEAT EXAM: NONE Gillian Figueroa MD eSigned: Gillian Figueroa MD 06/02/2017 8:35 AM cc:
== END 2017-04-23 19:42 | disposition home or self-care (01) ==
LOC: NEPD 11:07
DX: T18.2XXA Foreign body in stomach, initial encounter (principal); R94.31 Abnormal electrocardiogram [ECG] [EKG]
CPT/HCPCS: 43235; 70360; 71020; 74000; 84703; 93005; 96361; 96374; 99285; C9113; J2270; J7030

== ENCOUNTER 2017-09-25 09:17 | Emergency (ER) | payer SELFPAY ==
[2017-09-25 09:22] VITALS: BP 97/76; PULSE 114; RESP 20; TEMP 98.2; O2SAT 98
[2017-09-25] MEDS ORDERED: LIDOCAINE 1%/EPINEPHrine 1:100,000 SOLN 20 ML VIAL INFIL ONE (10:45)
--- NOTE | 2017-09-25 11:30 | RADRPT ---
EXAM DATE/TIME: 09/25/2017 09:58 [facility] COMPARISON: No previous studies available for comparison. INDICATIONS : Laceration to posterior left thigh. MEDICAL HISTORY : None. SURGICAL HISTORY : None. ENCOUNTER: Initial ACUITY: 1 day PAIN SCORE: 10/10 LOCATION: Left buttock FINDINGS: Two view examination of the left femur demonstrates no evidence of fracture or dislocation. Bony min eralization is normal. The soft tissue structures are intact. CONCLUSION: No acute disease. John Cordoba MD on September 25, 2017 at 11:21 Board Certified Radiologist. This report was verified electronically.
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
== END 2017-09-25 12:04 | disposition home or self-care (01) ==
LOC: PHEFT 09:17
DX: S71.112A Laceration without foreign body, left thigh, initial encounter (principal); W01.110A Fall on same level from slipping, tripping and stumbling with subsequent striking against sharp glass, initial encounter; F31.9 Bipolar disorder, unspecified; F43.10 Post-traumatic stress disorder, unspecified; F17.200 Nicotine dependence, unspecified, uncomplicated
CPT/HCPCS: 12001; 73552